=== PATIENT | male | born 1995 | race Caucasian/White ===

== ENCOUNTER 2016-09-30 05:21 | Emergency (ER) | payer SELFPAY ==
[~2016-09-30] VITALS: Ht 172.7 cm; Wt 54.4 kg
[2016-09-30] MEDS ORDERED: RT-ALBUTEROL/IPRATROPIUM 3 ML (DUONEB) VIAL INH ONE ×2 (05:30→05:45)
[2016-09-30] MEDS ORDERED: RX-ALBUTEROL INHALER (PROAIR) 8 GM IH PRN (05:30)
[2016-09-30] MEDS ORDERED: predniSONE 20 MG TAB PO ONE (05:30)
--- NOTE | 2016-09-30 05:35 | ED Respiratory ---
General Stated Complaint: SOA Source: patient Exam Limitations: no limitations History of Present Illness Time seen by provider: 05:20 Initial Comments Here with complaint of shortness of air and wheezing stating that his asthma has acted up. He has a rescue inhaler but does not have access to it currently. Denies fever or chills. Denies nausea or vomiting. States it's been a while since he had an asthma attack like this. Does report smoking. States he used to be allergic to a lot of things but not anymore. Timing/Duration: this morning Severity: moderate Prior Episodes/Possible Cause: occasional episodes Modifying Factors: Worse With Activity Associated Symptoms: No fever/chills, shortness of breath, wheezing Allergies and Home Medications Allergies Coded Allergies: No Known Drug Allergies (Unverified , 09/30/16) Home Medications Prednisone 20 Mg Tab, 40 MG PO DAILY, #6 Ref 0 Prescribed by: CORINA BRYANT on 09/30/16 0537 Constitutional: see HPI, No chills, No fever EENTM: no symptoms reported Respiratory: see HPI, short of breath, wheezing Cardiovascular: no symptoms reported Gastrointestinal: no symptoms reported, No nausea, No vomiting Genitourinary: no symptoms reported Musculoskeletal: no symptoms reported Skin: no symptoms reported Psychiatric/Neurological: No Symptoms Reported All Other Systems Reviewed Negative Unless Noted: Yes Past [id number] Hx Patient Social History Alcohol Use: Occasionally Uses Recreational Drug Use: Yes Smoking Status: Current Everyday Smoker Type Used: Cigarettes Surgeries HX Surgeries: Yes Surgeries: Orthopedic Respiratory Hx Respiratory Disorders: Yes Respiratory Disorders: Asthma Cardiovascular Hx Cardiac Disorders: No Neurological Hx Neurological Disorders: No Gastrointestinal Hx Gastrointestinal Disorders: No Musculoskeletal Hx Musculoskeletal Disorders: Yes Musculoskeletal Disorders: Chronic Back Pain Reviewed Nursing Assessment Reviewed/Agree w Nursing PMH: Yes Family Medical History Significant Family History: No Pertinent Family Hx Physical Exam Vital Signs Vital Sign - Last 12Hours 09/30/16 05:23 Temp 95.6 Pulse 98 Resp 24 B/P (MAP) 128/85 Pulse Ox 94 O2 Delivery Room Air Capillary Refill : General Appearance: WD/WN, moderate distress (respiratory), thin HEENT: PERRL/EOMI Neck: full range of motion, supple, normal inspection Respiratory: accessory muscle use, wheezing Cardiovascular: regular rate, rhythm, no murmur Gastrointestinal: non tender, soft Extremities: non-tender, no pedal edema, no calf tenderness Neurologic/Psychiatric: alert, oriented x 3 Skin: normal color, warm/dry Progress/Results/Core Measures Results/Orders My Orders Orders - CORINA BRYANT MD Albuterol/Ipra Inhalation Soln (Duoneb I (09/30/16 05:30) Svn Sm Volume Nebulizer Rt-Rfs (09/30/16 05:27) Prednisone Tablet (Deltasone Tablet) (09/30/16 05:30) Rx-Albuterol Inhaler (Rx-Proair) (09/30/16 05:30) Albuterol/Ipra Inhalation Soln (Duoneb I (09/30/16 05:45) Svn Sm Volume Nebulizer Rt-Rfs (09/30/16 05:35) Medications Given in ED Current Medications Medications Dose Ordered Sig/Roopa Route Start Time Stop Time Status Last Admin Dose Admin Albuterol/ Ipratropium 3 ml ONCE ONCE INH 09/30/16 05:30 09/30/16 05:32 DC 09/30/16 05:33 3 ML Albuterol/ Ipratropium 3 ml ONCE ONCE INH 09/30/16 05:45 09/30/16 05:46 DC 09/30/16 05:26 3 ML Prednisone 40 mg ONCE ONCE PO 09/30/16 05:30 09/30/16 05:32 DC 09/30/16 05:40 40 MG Vital Signs/I&O Vital Sign - Last 12Hours 09/30/16 05:23 Temp 95.6 Pulse 98 Resp 24 B/P (MAP) 128/85 Pulse Ox 94 O2 Delivery Room Air Progress Note : Progress Note Seen and evaluated. Duo neb ordered. Prednisone 40 mg by mouth ordered. Repeat neb ordered. Much better after. Wheezing completely resolved and patient states that baseline. Discharged home with return precautions. Patient verbalize understanding instructions and agreement with plan. Departure Impression Impression: Primary Impression: Asthma exacerbation Disposition: 01 HOME, SELF-CARE Condition: Improved Departure-Patient Inst. Decision time for Depature: 05:36 Patient Instructions: Asthma, Adult (DC) Add. Discharge Instructions: Take medications as directed. Keep your rescue inhaler with you. Follow-up with your DrSaurabh in a few days for recheck. Return for worse pain, fever, vomiting , weakness, breathing problems or other concerns as needed. Scripts Prednisone (Prednisone) 20 Mg Tab 40 MG PO DAILY, #6 TAB 0 Refills Prov: CORINA BRYANT MD 09/30/16 CORINA BRYANT MD Sep 30, 2016 05:35
[2016-09-30] MEDS ORDERED: PRD20T PO (05:37)
[2016-09-30 05:48] VITALS: BP 115/74
== END 2016-09-30 05:48 | disposition home or self-care (01) ==
LOC: ER 05:25
DX: J45.901 Unspecified asthma with (acute) exacerbation (principal); G89.29 Other chronic pain; M54.9 Dorsalgia, unspecified; F17.210 Nicotine dependence, cigarettes, uncomplicated; Z98.890 Other specified postprocedural states
CPT/HCPCS: 99283